=== PATIENT | female | born 1965 | race Two or more races ===

== ENCOUNTER → 2024-11-06 | Outpatient (BNVA) | payer MEDICAID, SELFPAY | END | disposition home or self-care (01) | PROVIDERS: Visit Provider Urology | DX: N28.1 Cyst of kidney, acquired (principal); E78.2 Mixed hyperlipidemia; R73.03 Prediabetes; F43.23 Adjustment disorder with mixed anxiety and depressed mood | CPT/HCPCS: 81003; 99203; G0463 ==